=== PATIENT | female | born 1970 | race Caucasian/White ===

== ENCOUNTER → 2022-02-02 | Day surgery (SDC) | payer OTHER | END | disposition home or self-care (01) | LOC: FMAMMOTONE 12:23 | PROVIDERS: ATTEND Surgery Surgical Oncology | PROC: 0HBT3ZX Excision of Right Breast, Percutaneous Approach, Diagnostic (ICD-10-PCS; principal; 2022-02-02) | DX: Z53.8 Procedure and treatment not carried out for other reasons (principal); R92.0 Mammographic microcalcification found on diagnostic imaging of breast | CPT/HCPCS: 19081 ==